=== PATIENT | male | born 1950 | race Two or more races ===

== ENCOUNTER 2017-12-02 07:00 | Outpatient (CLI) | payer OTHER | END 2017-12-02 07:10 | disposition home or self-care (01) | LOC: RAD 07:00 | DX: D68.8 Other specified coagulation defects (principal); E78.2 Mixed hyperlipidemia; N39.0 Urinary tract infection, site not specified; R07.89 Other chest pain; I10 Essential (primary) hypertension ==

== ENCOUNTER 2017-12-09 09:40 | Inpatient (IN) | payer OTHER ==
[~2017-12-09] VITALS: Ht 167.6 cm; Wt 98.9 kg
[2017-12-09] MEDS ORDERED: FORTAMET1000 MG PO (10:09)
[2017-12-17] MEDS ORDERED: HYZAAR 50-12.51 EACH PO (10:37)
[2017-12-19] MEDS ORDERED: PERCOCET 5-3251 EACH PO (10:04)
[2017-12-19] MEDS ORDERED: NORFLEX100MG PO (10:04)
[2017-12-19] MEDS ORDERED: GABAPENTIN100 MG PO (10:04)
[2017-12-19] MEDS ORDERED: XARELTO10 MG PO (10:04)
[2017-12-19] MEDS ORDERED: CIPROFLOXACIN750 MG PO (10:16)
== END 2017-12-18 14:40 | DRG 470 ==
LOC: SURG 12-16 05:30 → O/R 12-16 05:30 → SURG 12-16 07:00
PROVIDERS: Orthopaedic Surgery
PROC: 0SRC0J9 Replacement of Right Knee Joint with Synthetic Substitute, Cemented, Open Approach (ICD-10-PCS; principal; 2017-12-16 07:00)
DX: M17.11 Unilateral primary osteoarthritis, right knee (principal); D62 Acute posthemorrhagic anemia; E11.9 Type 2 diabetes mellitus without complications; I10 Essential (primary) hypertension

== ENCOUNTER 2018-03-05 06:12 | Outpatient (CLI) | payer OTHER ==
[~2018-03-05 06:12] MED LIST: CIPROFLOXACIN750 MG PO; FORTAMET1000 MG PO; GABAPENTIN100 MG PO; HYZAAR 50-12.51 EACH PO; NORFLEX100MG PO; PERCOCET 5-3251 EACH PO; XARELTO10 MG PO
== END 2018-03-05 06:31 | disposition home or self-care (01) ==
LOC: LAB 06:12 → RAD 06:12 → LAB 06:31
DX: M25.561 Pain in right knee (principal); M25.562 Pain in left knee; D50.0 Iron deficiency anemia secondary to blood loss (chronic); D51.1 Vitamin B12 deficiency anemia due to selective vitamin B12 malabsorption with proteinuria; E11.9 Type 2 diabetes mellitus without complications; I10 Essential (primary) hypertension; D51.0 Vitamin B12 deficiency anemia due to intrinsic factor deficiency; E03.8 Other specified hypothyroidism; D50.8 Other iron deficiency anemias; D51.8 Other vitamin B12 deficiency anemias; E06.3 Autoimmune thyroiditis